=== PATIENT | female | born 1980 | race Caucasian/White ===

== ENCOUNTER 2017-07-16 17:10 | Inpatient (IN) | END 2017-07-19 18:02 | disposition home or self-care (01) | DRG 765 ==

== ENCOUNTER 2018-10-05 06:55 | Day surgery (SDC) | payer OTHER ==
--- NOTE | 2018-10-04 20:50 | PREOPHP ---
DATE OF ADMISSION: 10/05/2018 Patient is having a surgical procedure on 10/05/2018. HISTORY OF PRESENT ILLNESS: This is a 37-year-old female, 4, para 3, abortions 1. Patient w ith a history of repeat 3 C-sections and a tubal ligation and colposcopy that was abnormal and a biop sy that showed CHERIE 1 to 2. The patient was adamant about having the LEEP conization at the hospital due to severe panic attacks and she would only accept the procedure under anesthesia. The patient wa s given Xanax before appointment and still, she was unable to relax enough to accept the conization i n the office. For CHERIE 1 to 2 endometrial hyperplasia, she is having a LEEP procedure and a D and C f or endometrial biopsy. PAST MEDICAL HISTORY: Three C-sections, tubal ligation. She had no other problems except for her we ight. She is morbidly obese and history of PCO syndrome through the same problem. ALLERGIES: SHE IS ALLERGIC TO DEMEROL AND MORPHINE. MEDICATIONS: She also takes thyroid for low thyroid. REVIEW OF SYSTEMS: Noncontributory. FAMILY HISTORY: Diabetes, hypertension, asthma. PHYSICAL EXAMINATION: VITAL SIGNS: Stable. The patient weighs 340 pounds. She is 5 feet 7 inches. The blood pressure is 130/70, pulse is 80, respirations 16. HEAD AND NECK: Normal. CHEST: Clear. HEART: Normal sinus rhythm. LUNGS: Clear. BREASTS: Soft, nontender, no masses. ABDOMEN: Soft. PELVIC: The uterus was of normal size. The pelvic examination is within normal limits with cervical stenosis only. EXTREMITIES: Normal with normal pulses and no edema. DIAGNOSES: Under ultrasound, endometrial hyperplasia and a biopsy of the cervix with CHERIE 1 to 2. PLAN: She is undergoing a LEEP conization and endometrial biopsy versus a D and C. She has been adv ised of the possible risks and possible complications of the procedure with her alternatives and opti ons. Written information was provided. She had no more questions and agreed to go ahead with the pr ocedure with full understanding and no more questions. Dictated By: LEI MILLER MD [facility] Conf#: [id number] DID#: [id number]
[2018-10-05] VITALS (14 sets, daily range): BP systolic 94–143; BP diastolic 59–82; PULSE 60–82; RESP 12–26; Ht 167.6 cm; Wt 153.6 kg
[~2018-10-05] VITALS: Ht 167.6 cm; Wt 153.6 kg
[~2018-10-05 06:55] MED LIST: LEVO175T6 PO; PREN-43 PO
[2018-10-05] MEDS ORDERED: CEFAZOLIN 2 GM/50 ML (PMX) 50 ML IVPB ONE (07:00)
[2018-10-05] MEDS ORDERED: ROCURONIUM 50 MG INJ ONE (07:00)
[2018-10-05] MEDS ORDERED: SUCCINYLCHOLINE CHLORIDE 100 MG/5 ML SYG IV ONE (07:00)
[2018-10-05] MEDS ORDERED: DESFLURANE 15 MIN ONE (07:00)
[2018-10-05] MEDS ORDERED: LEVO175T38 PO (08:09)
--- NOTE | 2018-10-05 08:29 | PREAC ---
Date/Time of Note Date/Time of Note DATE: 10/05/18 TIME: 08:28 Anesthesia Eval and Record Evaluation Time Pre-Procedure Interview DATE: 10/05/18 TIME: 08:28 Age 37 Sex female NPO: 8 hrs Preoperative diagnosis CHERIE 2 Planned procedure LEEP Past Medical History Past Medical History: Includes Endo: Hypothyroid GI: Morbid obesity Surgery & Anesthesia Issues No known issue Meds Anticoagulation: No Beta Laurence within 24 hr: No Reason Beta Laurence not given: Pt. not on B-Laurence Reported Medications Levothyroxine Sodium* (Levoxyl*) 175 Mcg Tablet, 175 MCG PO BEFORE BREAKFAST, #30 TAB 10/05/18 Discontinued Reported Medications Levothyroxine Sodium* (Levothyroxine Sodium*) 175 Mcg Tablet, 175 MCG PO BEFORE BREAKFAST, #30 TAB 07/16/17 #48/Iron Cb&Glu/Fa/B6 (CITRANATAL B-CALM COMBO PACK) 1 Each Tablet.seq, 1 EACH PO DAILY 11/05/13 Meds reviewed: Yes Allergies Coded Allergies: meperidine (Verified Allergy, Unknown, 10/05/18) morphine (Verified Allergy, Unknown, 10/05/18) Allergies Reviewed: Yes Labs/Studies Labs Reviewed: Reviewed by anesthesiologist test: Negative Pre-procedure Exam Last vitals Vital Signs Date Temp Pulse Resp B/P (MAP) Pulse Ox O2 O2 Flow FiO2 Time Delivery Rate 10/05/18 97.3 69 16 123/66 98 Room Air 07:48 (85) Airway: Adequate mouth opening, Adequate thyromental dist Mallampati: Mallampati III Teeth: Normal Lung: Normal Heart: Normal ASA Physical Status ASA physical status: 3 Emergency: None Pre-operative Attestations Prior to commencing anesthesia and surgery, the patient was re-evaluated, there was verification of: *The patient's identity *The results of appropriate recent lab work and preoperative vital signs *The above evaluation not changing prior to induction *Anesthetic plan, risk benefits, alternative and complications discussed with patient/family; questions answered; patient/family understands, accepts and wishes to proceed. VONNIE JUAREZ DO Oct 05, 2018 08:29
[2018-10-05] MEDS ORDERED: KETOROLAC 30 MG INJ IV PRN (08:30)
[2018-10-05] MEDS ORDERED: ACETAMINOPHEN 1000MG/100ML IV 100 ML IVPB ONE (08:30)
[2018-10-05] MEDS ORDERED: LIDOCAINE 2% (SDV) 5 ML INJ ONE (08:32)
[2018-10-05] MEDS ORDERED: PROPOFOL 20 ML ONE ×2 (08:32)
[2018-10-05] MEDS ORDERED: ALBUTEROL 0.083% (NEB) 2.5 MG/3 ML AMP ONE (08:43)
[2018-10-05] MEDS ORDERED: CEFAZOLIN 1 GM INJ ONE (08:48)
[2018-10-05] MEDS ORDERED: ONDANSETRON 4 MG INJ ONE (08:51)
[2018-10-05] MEDS ORDERED: PHENYLephrine (100 MCG/ML) 10ML SYG ONE (09:11)
[2018-10-05] MEDS ORDERED: SUGAMMADEX SODIUM 200 MG/2 ML VIAL IV ONE (09:28)
--- NOTE | 2018-10-05 09:34 | SIPON ---
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
--- NOTE | 2018-10-05 10:03 | PAC ---
Date/Time of Note Date/Time of Note DATE: 10/05/18 TIME: 10:03 Post-Anesthesia Notes Post-Anesthesia Note Last documented vital signs Vital Signs Date Temp Pulse Resp B/P (MAP) Pulse Ox O2 O2 Flow FiO2 Time Delivery Rate 98 69 16 120/60 98 Room Air 0 Activity: WNL Respiratory function: WNL Cardiovascular function: WNL Mental status: Baseline Pain reasonably controlled: Yes Hydration appropriate: Yes Nausea/Vomiting absent: Yes VONNIE JUAREZ DO Oct 05, 2018 10:03
--- NOTE | 2018-10-05 10:27 | OPR ---
DATE OF OPERATION: 10/05/2018 PROCEDURE: of the cervix fractional D and C. PREOPERATIVE DIAGNOSIS: Cervical CHERIE 2 on endometrial hyperplasia. POSTOPERATIVE DIAGNOSES: 1. Cervical CHERIE 2 on endometrial hyperplasia. 2. Large uterus. SURGEON: Lei Barcenas MD ANESTHESIOLOGIST: Dr. Kessler. DESCRIPTION OF PROCEDURE: The patient was given general anesthesia, placed in the lithotomy position . The perineal and vaginal area were prepped and draped, and a small catheter was placed in the blad cate to empty her bladder. The vaginal speculum was applied and the uterus was held with a forceps. The cervix was very large. The uterus was sounded to a depth of 12 cm and endocervical curettage was done. The cervix was dilated further with Hegar dilators and curettage of the cavity was done obtai neha scanty amount of endometrial tissue. The instruments were removed, and a speculum was applied f or the cervical conization. There were only small loops available and we used a small loop for the a nterior cervix and posterior cervix and 3:00 ectocervix. These biopsies were sent for pathology. Tw o stitches with #0 Vicryl were placed laterally at the cervical area at 9 o'clock and 6 o'clock for p revention of bleeding and cauterization was done and Surgicel was applied on the cervix. The hemosta sis was achieved. The patient tolerated the procedure well and left the OR awake and stable. Sponge counts and instrument counts were correct. Intravenous antibiotics were given for prophylaxis. Blo od loss was minimal and the urine was clear. Dictated By: LEI LONGO/CARLOTA Conf#: [id number] DID#: [id number]
[2018-10-05] MEDS ORDERED: IBUPROFEN 200 MG TAB PO ONE ×2 (10:30→11:00)
--- NOTE | 2018-10-06 16:48 | RADRPT ---
Vent Rate: 70 bpm RR Interval: 852 msec SD Interval: 137 msec QRS Duration: 105 msec QT Interval: 398 msec QTC Interval: 431 msec P-R-T Carlos: 40 - 43 - 39 degrees Sinus rhythm...normal P axis, V-rate 50- 99 Low voltage, precordial leads...precordial leads <1.0mV Electronically Signed By: Jabari Agee
== END 2018-10-05 11:30 | disposition home or self-care (01) ==
LOC: SDS 06:55
PROVIDERS: ATTEND Obstetrics & Gynecology
DX: N87.1 Moderate cervical dysplasia (principal); N88.8 Other specified noninflammatory disorders of cervix uteri; E03.9 Hypothyroidism, unspecified
CPT/HCPCS: 57522; 84703; 88305; 93005; J0131; J0690; J1885; J2370; J2405; Z7512; Z7610